=== PATIENT | female | born 2000 | race Two or more races ===

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

== ENCOUNTER 2022-03-04 21:48 | Emergency (ER) | payer BC, MEDICAID ==
[~2022-03-04] VITALS: Ht 157.5 cm; Wt 52.2 kg
[2022-03-04 23:35] LABS: Urine Blood Trace /uL (Negative); Urine Specific Gravity 1.034 (1.001-1.035)
[2022-03-04 23:39] LABS: Basophils # (auto) 0 10 ^3/uL (0-0.2); Basophils % (auto) 0.4 % (0.0-2.0); Eosinophils # (auto) 0.2 10 ^3/uL (0-0.8); Eosinophils % (auto) 2.9 % (0.0-7.0); Hematocrit 40.1 % (36.0-46.0); Hemoglobin 13.8 g/dL (12.2-16.2); Lymphocytes # (auto) 1.4 10 ^3/uL (0.4-5.4); Mean Corpuscular Hemoglobin 27.6 pg (28.0-32.0); Mean Corpuscular Hgb Conc. 34.5 g/dL (32.0-36.0); Monocytes % (auto) 12.8 % (0.0-12.0); Neutrophils # (auto) 4.9 10 ^3/uL (1.6-8.6); Neutrophils % (auto) 64.9 % (37.0-80.0); Nucleated Red Blood Cells % 0.1 %; Red Blood Cells 5.01 10^6/uL (4.0-5.20); White Blood Cell 7.6 10^3/uL (4.4-10.8)
[2022-03-04 23:45] LABS: Urine Bacteria FEW /hpf (None Seen); Urine WBC 5 /hpf (0 - 5)
[2022-03-05 00:01] LABS: Albumin 3.9 g/dL (3.4-5.0); Calcium 9.2 mg/dL (8.5-10.1); Potassium 3.8 mmol/L (3.5-5.1)
[2022-03-05 00:05] LABS: Bilirubin, Total 0.3 mg/dL (0.2-1.0); Total Protein 7.2 g/dL (6.4-8.2)
[2022-03-05] MEDS ORDERED: IOHEXOL 300 MG/ML 100ML BOTTLE IJ ONE (05:49)
[2022-03-05 09:18] VITALS: BP 128/82
[2022-03-05] MEDS ORDERED: CEPH-509 PO (09:28)
== END 2022-03-05 10:14 | disposition home or self-care (01) ==
LOC: ER 21:48
DX: N39.0 Urinary tract infection, site not specified (principal)
CPT/HCPCS: 36415; 74177; 80053; 81001; 81025; 82150; 83690; 85025; 99285; Q9967